=== PATIENT | female | born 1985 | race Caucasian/White ===

== ENCOUNTER → 2020-11-07 | Outpatient (CLI) | payer OTHER ==
--- NOTE | 2020-11-07 10:25 | REP ---
INDICATION: PAIN COMPARISON: None. TECHNIQUE: AP and frog-lateral views of the right hip FINDINGS: Minimal increased sclerosis along the acetabular roof with subtle marginal spurring. Otherwise normal age-appropriate examination. No evidence for acute or healed injury. Surrounding soft tissues normal. No periarticular calcifications or loose bodies. IMPRESSION: Mild generalized age-related changes. <Electronically signed by Jong Correa > 11/07/20 1028
[2020-11-07 12:18] LABS: BASO % 0.9 % (0.0-1.0); EOS % 0.9 % (0.0-3.0); HEMATOCRIT 38.3 % (36.0-47.0); HEMOGLOBIN 12.6 g/dl (12.0-15.5); LYMPH # 1.7 10^3/uL (1.5-5.0); LYMPH % 37.2 % (24.0-44.0); MEAN CORPUSCULAR HEMOGLOBIN 31.6 pg (27.0-33.0); MEAN CORPUSCULAR HGB CONC 32.9 g/dl (32.0-36.5); MONO # 0.4 10^3/uL (0.0-0.8); MONO % 9.2 % (2.0-8.0); NEUTROPHILS # 2.4 10^3/uL (1.5-8.5); NEUTROPHILS % 51.8 % (36.0-66.0); PLATELET COUNT, AUTOMATED 225 10^3/uL (150-450); RED BLOOD COUNT 3.99 10^6/uL (4.00-5.40); WHITE BLOOD COUNT 4.7 10^3/uL (4.0-10.0)
[2020-11-07 14:22] LABS: ALBUMIN 4.4 GM/DL (3.2-5.2); ALT/SGPT 24 U/L (12-78); BILIRUBIN,TOTAL 0.5 MG/DL (0.2-1.0); BLOOD UREA NITROGEN 13 MG/DL (7-18); CALCIUM LEVEL 9.3 MG/DL (8.5-10.1); CARBON DIOXIDE LEVEL 29 MEQ/L (21-32); CHLORIDE LEVEL 106 MEQ/L (98-107); CREATININE FOR GFR 0.64 MG/DL (0.55-1.30); FREE T4 0.82 NG/DL (0.76-1.46); GLOMERULAR FILTRATION RATE > 60.0 (>60); GLUCOSE, FASTING 82 MG/DL (70-100); POTASSIUM SERUM 4.7 MEQ/L (3.5-5.1); SODIUM LEVEL 139 MEQ/L (136-145); TOTAL 25(OH) VITAMIN D 24.8 NG/ML (30.0-100.0); TOTAL PROTEIN 7.3 GM/DL (6.4-8.2)
[2020-11-07 15:25] LABS: IRON (FE) 176 UG/DL (50-170); PERCENT SATURATION 45.6 % (13.2-45.0); TOTAL IRON BINDING CAPACITY 386 UG/DL (250-450)
== END ==
LOC: M WUC 09:54
PROVIDERS: ATTEND Family Medicine
DX: R53.83 Other fatigue (principal); M25.551 Pain in right hip
CPT/HCPCS: 36415; 73502; 80053; 82306; 83550; 84439; 84443; 85025; G0463

== ENCOUNTER → 2021-02-17 | Outpatient (CLI) | payer OTHER ==
[2021-02-17 15:02] LABS: PERCENT SATURATION 44.6 % (13.2-45.0)
== END ==
LOC: M WUC 11:22
PROVIDERS: ATTEND Family Medicine
DX: E83.19 Other disorders of iron metabolism (principal)

== ENCOUNTER → 2021-06-11 | Outpatient (REF) | payer OTHER | LOC: M SFHCLERA 15:48 | PROVIDERS: ATTEND Student in an Organized Health Care Education/Training Program | DX: Z12.4 Encounter for screening for malignant neoplasm of cervix (principal) | CPT/HCPCS: 87624; G0123; G0463 ==